=== PATIENT | female | born 1955 | race Caucasian/White ===

== ENCOUNTER 2017-01-09 10:00 | Inpatient (IN) ==
[2017-01-09 12:17] LABS: Appearance,Urine CLEAR; Bilirubin,Urine NEG (NEG); Color,Urine YELLOW; Glucose,Urine (UA) NEGATIVE (NEG); Leukocyte Esterase,Urine NEG /uL (NEG); Nitrate,Urine NEG (NEG); Protein,Urine NEG (NEG); Specific Gravity,Urine 1.012 (1.000-1.035); Urine Blood NEG mg/dL (<0.03); Urobilinogen,Urine NEG (NEG)
[2017-01-09 12:48] LABS: Basophils # (Auto) 0 K/mcL (0.0-0.3); Basophils % (Auto) 0.9 % (0.0-2.0); Eosinophils # (Auto) 0.2 K/mcL (0.0-0.7); Eosinophils % (Auto) 4.7 % (0.0-7.0); Lymphocytes # (Auto) 1.7 K/mcL (1.5-4.8); Lymphocytes % (Auto) 34.7 % (15.5-49.0); Mean Cell Volume 88.1 fL (80.0-100.0); Mean Corpuscular HGB Conc 33.6 g/dL (31.0-36.0); Mean Corpuscular Hemoglobin 29.6 pg (26.0-34.0); Monocytes # (Auto) 0.4 K/mcL (0.1-0.9); Monocytes % (Auto) 7.7 % (1.0-12.0); Platelet Count 242 K/mcL (140-440); RBC 4.77 M/mcL (4.00-5.20); Red Cell Distribution Width 13.3 % (11.5-14.5)
[2017-01-09 12:59] LABS: Blood Urea Nitrogen 16 mg/dl (6-20)
[2017-01-16] MEDS ORDERED: oxyCODONE 10 MG TAB.ER.12H PO SCH (05:00)
[2017-01-16] MEDS ORDERED: CELECOXIB 200 MG CAPSULE PO SCH (05:00)
[2017-01-16] MEDS ORDERED: ceFAZolin 1 GM VIAL IV SCH (05:00)
[2017-01-16] MEDS ORDERED: PREGABALIN 75 MG CAPSULE PO SCH (05:00)
[2017-01-16] MEDS ORDERED: DEXAMETHASONE 10 MG/ML VIAL IV ONE (10:25)
[2017-01-16] MEDS ORDERED: TRANEXAMIC ACID 1,000 MG/10 ML VIAL IV ONE (10:25)
[2017-01-16] MEDS ORDERED: ONDANSETRON 4 MG/2 ML VIAL IV ONE (10:25)
[2017-01-16] MEDS ORDERED: PROPOFOL 200 MG/20 ML VIAL IV ONE (10:25)
[2017-01-16] MEDS ORDERED: LIDOCAINE HCL/PF 100 MG/5 ML SYRINGE IV ONE (10:25)
[2017-01-16] MEDS ORDERED: MIDAZOLAM 5 MG/5 ML VIAL IV ONE (10:25)
[2017-01-16] MEDS ORDERED: GENTAMICIN SULFATE 800 MG/20 ML VIAL IR ONE (10:57)
[2017-01-16] MEDS ORDERED: IPRATROPIUM/ALBUTEROL 3 ML AMPUL.NEB NEB PRN (11:58)
[2017-01-16] MEDS ORDERED: diphenhydrAMINE 50 MG/ML VIAL IV PRN (11:58)
[2017-01-16] MEDS ORDERED: NALOXONE HCL 0.4 MG/ML VIAL IV PRN (11:58)
[2017-01-16] MEDS ORDERED: fentaNYL 100 MCG/2 ML VIAL IV PRN (11:58)
[2017-01-16] MEDS ORDERED: METOCLOPRAMIDE 10 MG/2 ML VIAL IV PRN (11:58)
[2017-01-16] MEDS ORDERED: FLUMAZENIL 0.1 MG/ML ML IV PRN (11:58)
[2017-01-16] MEDS ORDERED: ONDANSETRON 4 MG/2 ML VIAL IV PRN ×2 (11:58→12:19)
[2017-01-16] MEDS ORDERED: BENZOCAINE/MENTHOL 1 LOZENGE PO PRN ×2 (11:58→12:19)
[2017-01-16] MEDS ORDERED: METOPROLOL TARTRATE 5 MG/5 ML VIAL IV PRN (11:58)
[2017-01-16] MEDS ORDERED: ePHEDrine 50 MG/ML AMPUL IV PRN (11:58)
[2017-01-16] MEDS ORDERED: ATROPINE SULFATE 0.4 MG/ML VIAL IV PRN (11:58)
[2017-01-16] MEDS ORDERED: HYDROmorphone 2 MG/ML SYRINGE IV PRN (11:58)
[2017-01-16] MEDS ORDERED: METHOCARBAMOL 1,000 MG/10 ML VIAL IV PRN ×2 (11:58→12:19)
[2017-01-16] MEDS ORDERED: MEPERIDINE 25 MG/ML SYRINGE IV PRN (11:58)
[2017-01-16] MEDS ORDERED: LACTATED RINGERS 1,000 ML IV SCH (12:00)
--- NOTE | 2017-01-16 12:18 | Brief Operative Note ---
Date of procedure: 01/16/17 Pre-op diagnosis: left total hip arthroplasty with painful subsided femoral component Post-op diagnosis: same Procedure: left total hip arthroplasty revision femoral component Grafts/Implants: Yes Anesthesia: spinal Complications: none Surgeon: Shelton Pruitt Sales Support Coordinator: Rell Hernandez Estimated blood loss (cc): 150 Specimens Removed/Pathology: none sent Condition: stable Disposition: PACU
[2017-01-16] MEDS ORDERED: FLEETS ADULT ENEMA PR PRN (12:19)
[2017-01-16] MEDS ORDERED: MAGNESIUM HYDROXIDE 30 ML ORAL.SUSP PO PRN (12:19)
[2017-01-16] MEDS ORDERED: BISACODYL 10 MG SUPP.RECT PR PRN (12:19)
[2017-01-16] MEDS ORDERED: POLYETHYLENE GLYCOL 3350 17 GM PACKET PO PRN (12:19)
[2017-01-16] MEDS ORDERED: TRANEXAMIC ACID 1,000 MG/10 ML VIAL IV SCH (12:19)
[2017-01-16] MEDS: 0.9 % SODIUM CHLORIDE 1,000 ML IV SCH ×2 (13:35→20:57)
--- NOTE | 2017-01-16 14:38 | XRay Report ---
CLINICAL INFORMATION: Left total hip prostheses COMPARISON: None. FINDINGS: Left total hip prostheses is anatomically aligned. Soft tissue swelling seen over the surgical site. Radiolucent margin between the prosthetic femoral stem and trochanter appears prominent IMPRESSION: Left hip prostheses is anatomically aligned Interpreted and Authenticated by: Shelton Moe 01/16/17
[2017-01-16] MEDS: HYDROmorphone 2 MG/ML SYRINGE IV PRN ×3 (15:12→20:07)
[2017-01-16] MEDS: 0.9 % SODIUM CHLORIDE 10 ML SYRINGE IV SCH ×2 (15:16→20:08)
[2017-01-16] MEDS: HYDROcodone/APAP 10/325MG TABLET PO PRN ×2 (16:58→20:56)
[2017-01-16] MEDS: ceFAZolin 1 GM VIAL IV SCH (17:59)
[2017-01-16] MEDS: CYCLOBENZAPRINE 10 MG TABLET PO SCH (20:07)
[2017-01-16] MEDS: ASPIRIN 325 MG ENTERIC COATED TABLET PO SCH (20:07)
[2017-01-16] MEDS: DOCUSATE SODIUM 100 MG CAPSULE PO SCH (20:07)
[2017-01-16] MEDS: DESIPRAMINE 25 MG TABLET PO SCH (20:07)
[2017-01-16] MEDS: CITALOPRAM 20 MG TABLET PO SCH (20:07)
[2017-01-16] MEDS: SENNOSIDES 1 TABLET PO SCH (20:58)
[2017-01-17] MEDS: HYDROcodone/APAP 10/325MG TABLET PO PRN ×7 (01:57→21:57)
[2017-01-17] MEDS: ceFAZolin 1 GM VIAL IV SCH (01:57)
[2017-01-17] MEDS: 0.9 % SODIUM CHLORIDE 1,000 ML IV SCH ×2 (04:30→11:20)
[2017-01-17] MEDS: 0.9 % SODIUM CHLORIDE 10 ML SYRINGE IV SCH ×3 (04:31→21:11)
--- NOTE | 2017-01-17 07:04 | Orthopedic Progress Note ---
Subjective Patient information: Note initiated : 01/17/17 at 7:02 am Service Date, if different from initiated Date: [] Patient: Ania De La Fuente 61 y/o F admitted on 01/16/17 for Left Total Hip Revision of Femoral Component. Chief Complaint: [] Interval history: doing well. pain under control Objective Vital signs: Vital Signs Temp Pulse Resp BP BP Pulse Ox 01/17/17 04:00 97.5 F 101 H 16 115/74 96 01/16/17 23:01 98.0 F 94 H 16 117/73 93 01/16/17 19:45 97.5 F 97 H 16 126/79 94 01/16/17 15:45 131/80 93 01/16/17 15:15 137/92 93 01/16/17 14:45 131/86 93 01/16/17 14:15 131/94 95 01/16/17 14:00 74 139/90 96 01/16/17 13:40 74 144/91 96 01/16/17 13:30 97.9 F 18 129/88 98 01/16/17 13:12 97.4 F 98 H 18 102/50 96 01/16/17 13:03 81 22 102/50 97 01/16/17 12:49 97.0 F 76 16 108/69 100 01/16/17 08:00 98.0 F 16 146/90 97 Intake and Output 01/16/17 01/17/17 01/17/17 21:59 05:59 13:59 Intake Total 1960 1744 / 1744 Output Total 525 / 525 725 / 725 375 / 375 Balance 1436 / 1436 1019 / 1019 -375 / -375 Intake: IV 921 / 921 944 / 944 Sodium Chloride 0.9% 1, 921 / 921 944 / 944 000 ml @ 125 mls/hr IV . Q8H SANTA Rx#:[id number] Oral 1040 / 1040 800 / 800 Output: Void Amount 525 / 525 725 / 725 375 / 375 Other: Meal Dinner Percent of Meal Consumed 100% # Voids 1 Weight 224 lb 8 oz Intake & Output: Intake & Output 01/16/17 01/17/17 01/17/17 21:59 05:59 13:59 Intake Total 1961 / 1961 1744 / 1744 Output Total 525 / 525 725 / 725 375 / 375 Balance 1436 / 1436 1019 / 1019 -375 / -375 Weight 224 lb 8 oz Intake: IV 921 / 921 944 / 944 Sodium Chloride 0.9% 1, 921 / 921 944 / 944 000 ml @ 125 mls/hr IV . Q8H SANTA Rx#:[id number] Oral 1040 / 1040 800 / 800 Output: Void Amount 525 / 525 725 / 725 375 / 375 Other: Meal Dinner Percent of Meal Consumed 100% # Voids 1 Incision: Yes healing Incision clean and dry: Yes Dressing: Yes clean, Yes dry, Yes intact Weight bearing status: full Neurological exam IM: Yes alert, Yes normal gait, Yes oriented X3, Yes motor sensory intact, Yes neurovascular intact Extremities exam IM: No calf tenderness, Yes Foot pink and warm, Yes neurovascular intact - Labs CBC & BMP: 01/17/17 05:32 01/09/17 10:32 Labs: Orthopedic Labs 01/09/17 10:32 PT 13.3 INR 1.0 01/17/17 01/09/17 05:32 10:32 Hgb 11.2 L 14.1 Hct 33.1 L 42.0 Assessment and Plan (1) Hip pain pod 1 s/p revision left mukul Plan: wbat pain control dvt prophylaxis - ASA PT plan home tomorrow if passes pt Status: Acute
--- NOTE | 2017-01-17 07:06 | Discharge Summary ---
Ortho Discharge - [facility] - Patient Instructions Diet: Regular Diet Activity: ambulate with assistive device, weight bearing as tolerated Total Hip Protocol: Follow activity instructions as provided by Physical Therapy. Dressing Care: May shower in 2 days - Problem Maintenance (1) Hip pain Status: Acute - Follow Up Plan Disposition: Home, Self-Care Prognosis: Good Rehab Potential: Good I certify that the patient requires SNF services: No Overall status at discharge: patient is progressing back to baseline
[2017-01-17] MEDS: ASPIRIN 325 MG ENTERIC COATED TABLET PO SCH ×2 (08:10→21:11)
[2017-01-17] MEDS: ESTRADIOL 1 MG TABLET PO SCH (08:10)
[2017-01-17] MEDS: VITAMIN D3 5,000 UNIT CAPSULE PO SCH (08:11)
[2017-01-17] MEDS: DOCUSATE SODIUM 100 MG CAPSULE PO SCH ×2 (08:11→21:11)
[2017-01-17] MEDS: HYDROXYCHLOROQUINE 200 MG TABLET PO SCH (08:11)
[2017-01-17] MEDS: PANTOPRAZOLE 40 MG TABLET PO SCH (08:11)
[2017-01-17] MEDS: PROPRANOLOL 60 MG CAP.XL.24H PO SCH (10:06)
[2017-01-17] MEDS: SENNOSIDES 1 TABLET PO SCH (21:11)
[2017-01-17] MEDS: DESIPRAMINE 25 MG TABLET PO SCH (21:11)
[2017-01-17] MEDS: CYCLOBENZAPRINE 10 MG TABLET PO SCH (21:11)
[2017-01-17] MEDS: CITALOPRAM 20 MG TABLET PO SCH (21:11)
[2017-01-18] MEDS: HYDROcodone/APAP 10/325MG TABLET PO PRN ×2 (01:51→07:26)
[2017-01-18] MEDS: 0.9 % SODIUM CHLORIDE 10 ML SYRINGE IV SCH (05:45)
--- NOTE | 2017-01-18 06:19 | Orthopedic Progress Note ---
Subjective Patient information: Note initiated : 01/18/17 at 6:17 am Service Date, if different from initiated Date: [] Patient: Ania De La Fuente 61 y/o F admitted on 01/16/17 for Left Total Hip Revision of Femoral Component. Chief Complaint: [] Interval history: Pt doing well. Pain under control. Doing well with PT. She is ready to go home at this point. No concerns or questions at this time. Objective Vital signs: Vital Signs Temp Pulse Resp BP Pulse Ox 01/18/17 04:00 97.0 F 89 14 104/71 93 01/17/17 23:47 97.6 F 92 H 16 129/82 94 01/17/17 20:00 98.0 F 90 16 123/82 94 01/17/17 17:12 96.8 F L 120/70 95 01/17/17 16:00 101 H 01/17/17 12:00 101 H 01/17/17 11:03 96.7 F L 16 119/69 95 01/17/17 07:35 96.8 F L 16 116/66 95 Intake and Output 01/17/17 01/18/17 01/18/17 21:59 05:59 13:59 Intake Total 240 / 240 850 / 850 Output Total 1000 / 1000 900 / 900 Balance -760 / -760 -50 / -50 Intake: Oral 240 / 240 850 / 850 Output: Void Amount 1000 / 1000 900 / 900 Other: Meal Dinner Percent of Meal Consumed 100% # Voids 1 1 Weight 235 lb Intake & Output: Intake & Output 01/17/17 01/18/17 01/18/17 21:59 05:59 13:59 Intake Total 240 / 240 850 / 850 Output Total 1000 / 1000 900 / 900 Balance -760 / -760 -50 / -50 Weight 235 lb Intake: Oral 240 / 240 850 / 850 Output: Void Amount 1000 / 1000 900 / 900 Other: Meal Dinner Percent of Meal Consumed 100% # Voids 1 1 Incision: Yes healing, Yes clean and dry Dressing: Yes clean, Yes dry, Yes intact Weight bearing status: full Neurological exam IM: Yes abnormal gait, Yes alert, Yes oriented X3 Extremities exam IM: No calf tenderness, Yes Foot pink and warm, Yes neurovascular intact - Periperhal Pulses Peripheral pulses: 2+: dorsalis pedis (L), dorsalis pedis (R) - Labs CBC & BMP: 01/18/17 04:12 01/09/17 10:32 Labs: Orthopedic Labs 01/09/17 10:32 PT 13.3 INR 1.0 01/18/17 01/17/17 01/09/17 04:12 05:32 10:32 Hgb 10.5 L 11.2 L 14.1 Hct 30.6 L 33.1 L 42.0 Assessment and Plan (1) Hip arthritis assessment: pod 2 s/p left hip arthroplasty revision plan: d/c planning for today to home dressing change today in hospital prior to d/c continue PT pain control follow up in clinic at 2 week post op visit Status: Acute
[2017-01-18] MEDS: PANTOPRAZOLE 40 MG TABLET PO SCH (07:26)
[2017-01-18] MEDS: DOCUSATE SODIUM 100 MG CAPSULE PO SCH (09:08)
[2017-01-18] MEDS: ASPIRIN 325 MG ENTERIC COATED TABLET PO SCH (09:08)
[2017-01-18] MEDS: ESTRADIOL 1 MG TABLET PO SCH (09:09)
[2017-01-18] MEDS: VITAMIN D3 5,000 UNIT CAPSULE PO SCH (09:09)
[2017-01-18] MEDS: PROPRANOLOL 60 MG CAP.XL.24H PO SCH (09:09)
[2017-01-18] MEDS: HYDROXYCHLOROQUINE 200 MG TABLET PO SCH (09:09)
== END 2017-01-18 11:55 | disposition home or self-care (01) | DRG 468 ==
LOC: MEDSUR 01-16 08:00
PROVIDERS: ADMIT Orthopaedic Surgery Sports Medicine; ATTEND Orthopaedic Surgery Sports Medicine